=== PATIENT | male | born 1960 | race African-American/Black ===

== ENCOUNTER 2021-06-27 12:07 | Observation (INO) | payer OTHER ==
[2021-06-27 15:00] LABS: Basophils % 1.1 % (0-1.3); Hematocrit 44.4 % (39.6-49.0); Lymphocytes % 32.1 % (15.3-44.8); MPV 8.2 fL (7.6-11.3); RBC Red Blood Cell Count 5.02 M/uL (4.33-5.43)
[2021-06-27 15:03] LABS: Protime INR 1.02
[2021-06-27 15:18] LABS: ALT/SGPT 33 U/L (12-78); AST/SGOT 18 U/L (15-37); Albumin 4.9 g/dL (3.4-5.0); Alkaline Phosphatase 80 U/L (45-117); BUN Blood Urea Nitrogen 31 mg/dL (7-18); Bicarbonate 28 mmol/L (21-32); Bilirubin Direct 0.1 mg/dL (0-0.2); Bilirubin Total 0.4 mg/dL (0.2-1.0); Glucose Level 93 mg/dL (74-106); Magnesium 2.4 mg/dL (1.8-2.4); NT PRO-BNP 59 pg/mL (<125); Potassium 4.4 mmol/L (3.5-5.1); Protein, Total 9.4 g/dL (6.4-8.2); Sodium Level 137 mmol/L (136-145); Troponin (Emerg Dept Use Only) < 0.02 ng/mL (0.0-0.045)
--- NOTE | 2021-06-27 15:32 | RAD REPORT ---
EXAM DESCRIPTION: RAD - Chest Single View - 06/27/2021 3:07 pm CLINICAL HISTORY: SOB COMPARISON: None TECHNIQUE: AP portable chest image was obtained 06/27/2021 3:07 pm . FINDINGS: Lungs are clear. Heart and vasculature are normal. No measurable pleural effusion and no p neumothorax. No acute bony abnormality seen. No acute aortic findings suspected. IMPRESSION: No acute cardiopulmonary process.
[2021-06-27] MEDS ORDERED: NA CHLORIDE 0.9% 1,000 ML ONE (16:58)
--- NOTE | 2021-06-27 17:08 | EDPHYS ---
Physician Documentation [facility] Name: Abebe Montoya Age: 60 yrs Sex: Male : 1960 Arrival Date: 06/27/2021 Time: 12:10 Bed 16 Private MD: ED Physician Lavon Hayes HPI: 06/27 14:35 This 60 yrs old Black Male presents to ER via Ambulatory with complaints of Weakness, cp Shortness Of Breath. Historical: - Allergies: 12:21 No Known Allergies; ll1 - PMHx: 12:21 Diabetes mellitus; Hypertensive disorder; ll1 - PSHx: 12:22 knee SX; ll1 - Immunization history:: Client reports receiving the 2nd dose of the Covid vaccine, Flu vaccine is up to date. Client reports receiving the 2nd dose of the Covid vaccine, Date received: April 26, 2021 Moderna Client reports receiving the 1st dose of the Covid vaccine, March 29, 2021 Moderna. - Social history:: Smoking status: Patient denies any tobacco usage or history of. Exam: 15:11 ECG was reviewed by the Attending Physician. cp Vital Signs: 12:20 BP 122 / 90; Pulse 100; Resp 17; Temp 98.5; Pulse Ox 97% ; Weight 118.39 kg; Height 6 ll1 ft. 2 in. (187.96 cm); Pain 0/10; 12:20 Body Mass Index 33.51 (118.39 kg, 187.96 cm) ll1 MDM: 14:28 Patient medically screened. cp 17:17 Physician consultation: Jorge Hines MD was called at 17:18, was contacted at 17:18, cp regarding consult, patient's condition, and will see patient in inpatient room, tomorrow. 06/27 14:37 Order name: Basic Metabolic Panel cp 06/27 14:37 Order name: CBC with Diff cp 06/27 14:37 Order name: LFT's; Complete Time: 15:44 cp 06/27 15:44 Interpretation: Normal except: TP 9.4; GLOB 4.5. cp 06/27 14:37 Order name: Magnesium; Complete Time: 15:44 cp 06/27 14:37 Order name: NT PRO-BNP; Complete Time: 15:44 cp 06/27 14:37 Order name: PT-INR; Complete Time: 15:44 cp 06/27 14:37 Order name: Troponin (emerg Dept Use Only); Complete Time: 15:44 cp 06/27 14:37 Order name: Basic Metabolic Panel; Complete Time: 15:44 EDMS 06/27 15:45 Interpretation: Normal except: BUN 31; CRE 2.20; GFR 37; CA 10.2. cp 06/27 14:37 Order name: CBC with Automated Diff; Complete Time: 15:44 EDMS 06/27 16:37 Order name: SARS-COV-2 RT PCR; Complete Time: 17:10 EDMS 06/27 17:54 Order name: Lipid Profile EDMS 06/27 17:54 Order name: T4 Free EDMS 06/27 17:54 Order name: Troponin I EDVT 06/27 14:37 Order name: XRAY Chest (1 view); Complete Time: 15:44 cp 06/27 17:54 Order name: Hemoglobin A1c EDVT 06/27 17:54 Order name: Thyroid Stimulating Hormone EDVT 06/27 17:55 Order name: Urinalysis EDVT 06/27 17:55 Order name: Basic Metabolic Panel EDVT 06/27 17:55 Order name: Basic Metabolic Panel EDMS 06/27 17:55 Order name: CBC with Automated Diff EDMS 06/27 17:55 Order name: CBC with Automated Diff EDVT 06/27 18:06 Order name: Creatine Phosphokinase EDVT 06/27 20:13 Order name: US EDVT 06/27 23:46 Order name: Glucose, Ancillary Testing EDVT 06/28 05:09 Order name: Renal Panel EDVT 06/28 05:09 Order name: Magnesium EDVT 06/28 07:44 Order name: Glucose, Ancillary Testing EDVT 06/28 08:37 Order name: Osmolality, Urine EDMS 06/27 14:37 Order name: EKG; Complete Time: 14:37 cp 06/27 14:37 Order name: EKG - Nurse/Tech; Complete Time: 14:57 cp 06/27 14:37 Order name: IV Saline Lock; Complete Time: 14:57 cp 06/27 14:37 Order name: Labs collected and sent; Complete Time: 14:57 cp 06/27 14:37 Order name: O2 Per Protocol; Complete Time: 14:57 cp 06/27 14:37 Order name: O2 Sat Monitoring; Complete Time: 14:57 cp 06/27 17:54 Order name: 60g Consistent Carbohydrate (ADA ) EDMS EC:11 Rate is 75 beats/min. Rhythm is regular. TX interval is normal. QRS interval is normal. cp QT interval is normal. T waves are Inverted in lead aVR. Interpreted by me. Reviewed by me. Administered Medications: 16:47 Drug: NS 0.9% 1000 ml Route: IV; Rate: 1 bolus; Site: right antecubital; ld1 Disposition Summary: 06/27/21 17:07 Hospitalization Ordered Hospitalization Status: Observation cp Provider: Antonio Eugene cp Condition: Stable cp Problem: new cp Symptoms: are unchanged cp Bed/Room Type: Standard cp Location: Intensive Care Unit(06/28/21 06:49) cg Room Assignment: 6-(06/28/21 06:49) cg Diagnosis - Acute kidney failure, unspecified cp - SARS-associated coronavirus as the cause of diseases classified elsewhere cp Forms: - Medication Reconciliation Form cp - SBAR form cp Signatures: Dispatcher [employer] EDMS Angelita Cruz bd John Clements PA PA cp Dara Elizalde, RN RN cg Jorge Dickson RN RN ll1 Olesya Vivas RN RN ld1 Yoly Domingo RN RN kg Corrections: (The following items were deleted from the chart) 15:31 14:37 CORONAVIRUS+MR.LAB.BRZ ordered. EDMS EDMS 15:45 15:44 Normal except: BUN 31; CRE 2.20; GFR 37. cp cp 17:57 16:28 Rp Exam Complete+US.RAD.BRZ ordered. EDMS EDMS 18:04 17:07 Telemetry/MedSurg (observation) cp bd 18:04 17:07 cp bd 06/28 06:49 06/27 18:04 BR ER HOLD bd cg 06/28 06:49 06/27 18:04 ERHOLD- bd cg
--- NOTE | 2021-06-27 17:08 | ER ---
Nurse's Notes [facility] Name: Abebe Montoya Age: 60 yrs Sex: Male : 1960 Arrival Date: 06/27/2021 Time: 12:10 Bed 16 Private MD: Diagnosis: Acute kidney failure, unspecified;SARS-associated coronavirus as the cause of diseases classified elsewhere Presentation: 06/27 12:20 Chief complaint: Patient states: SOB and weakness for 2 days. No cough or fever. No ll1 pain. Coronavirus screen: Vaccine status: Patient reports receiving the 2nd dose of the covid vaccine. Client denies travel out of the [place] in the last 14 days. difficulty breathing, fatigue, shortness of breath, Client presents with at least one sign or symptom that may indicate coronavirus-19. Standard/surgical mask placed on the client. Ebola Screen: Patient denies travel to an Ebola-affected area in the 21 days before illness onset. No acute neurological deficit is noted. Initial Sepsis Screen: Does the patient meet any 2 criteria? HR > 90 bpm. No. Patient's initial sepsis screen is negative. Does the patient have a suspected source of infection? No. Patient's initial sepsis screen is negative. Risk Assessment: Do you want to hurt yourself or someone else? Patient reports no desire to harm self or others. Onset of symptoms was June 26, 2021. 12:20 Method Of Arrival: Ambulatory ll1 12:20 Acuity: MIRIAM 3 ll1 15:08 Coronavirus screen: Vaccine status: Patient reports receiving the 2nd dose of the covid kg vaccine. Date April 26, 2021 [facility] Patient reports receiving the 1st dose of the Covid vaccine. Date March 29, 2021 [facility]. Stroke Activation: Symptom onset > 6 hours Physician: Stroke Attending; Name: ; Notified At: ; Arrived At: Physician: Chief Stroke Resident; Name: ; Notified At: ; Arrived At: Physician: Stroke Resident; Name: ; Notified At: ; Arrived At: Physician: ED Attending; Name: ; Notified At: ; Arrived At: Physician: ED Resident; Name: ; Notified At: ; Arrived At: Historical: - Allergies: 12:21 No Known Allergies; ll1 - PMHx: 12:21 Diabetes mellitus; Hypertensive disorder; ll1 - PSHx: 12:22 knee SX; ll1 - Immunization history:: Client reports receiving the 2nd dose of the Covid vaccine, Flu vaccine is up to date. Client reports receiving the 2nd dose of the Covid vaccine, Date received: April 26, 2021 Moderna Client reports receiving the 1st dose of the Covid vaccine, March 29, 2021. - Social history:: Smoking status: Patient denies any tobacco usage or history of. Screenin:55 Abuse screen: Denies threats or abuse. Denies injuries from another. Nutritional kg screening: No deficits noted. Tuberculosis screening: No symptoms or risk factors identified. Fall Risk None identified. Assessment: 14:54 General: Appears in no apparent distress. Behavior is calm, cooperative, appropriate kg for age, quiet. Pain: Denies pain. Neuro: No deficits noted. Level of Consciousness is awake, alert, obeys commands, Oriented to person, place, time, situation, Appropriate for age [employer] are equal bilaterally Moves all extremities. Full function. Cardiovascular: No deficits noted. Heart tones S1 S2 Capillary refill < 3 seconds. Respiratory: Reports shortness of breath at rest cough that is non-productive, Breath sounds are clear bilaterally. GI: No deficits noted. : No deficits noted. EENT: No deficits noted. Derm: No deficits noted. Musculoskeletal: No deficits noted. Vital Signs: 12:20 BP 122 / 90; Pulse 100; Resp 17; Temp 98.5; Pulse Ox 97% ; Weight 118.39 kg; Height 6 ll1 ft. 2 in. (187.96 cm); Pain 0/10; 12:20 Body Mass Index 33.51 (118.39 kg, 187.96 cm) ll1 ED Course: 12:10 Patient arrived in ED. mr 12:21 Triage completed. ll1 12:22 Arm band placed on. ll1 14:28 John Clements PA is PHCP. cp 14:28 Lavon Hayes MD is Attending Physician. cp 14:54 Yoly Domingo, YONNY is Primary Nurse. kg 14:55 Patient has correct armband on for positive identification. kg 14:55 Inserted saline lock: 20 gauge in right antecubital area, using aseptic technique. kg 14:56 CBC with Automated Diff Sent. kg 14:56 Basic Metabolic Panel Sent. kg 14:57 Basic Metabolic Panel Sent. kg 14:57 CBC with Diff Sent. kg 14:57 LFT's Sent. kg 14:57 Magnesium Sent. kg 14:57 NT PRO-BNP Sent. kg 14:57 PT-INR Sent. kg 14:57 Troponin (emerg Dept Use Only) Sent. kg 15:07 XRAY Chest (1 view) In Process Unspecified. EDMS 17:06 Antonio Eugene is Hospitalizing Provider. cp 18:07 Primary Nurse role handed off by Yoly Domingo, YONNY oh 18:07 Joyce Lacy, RN is Primary Nurse. oh 19:10 Thyroid Stimulating Hormone Sent. oh 19:10 Hemoglobin A1c Sent. oh 19:11 Troponin I Sent. oh 19:11 T4 Free Sent. oh 19:11 Lipid Profile Sent. oh Administered Medications: 16:47 Drug: NS 0.9% 1000 ml Route: IV; Rate: 1 bolus; Site: right antecubital; ld1 Outcome: 17:07 Decision to Hospitalize by Provider. cp 06/28 10:26 Patient left the ED. iw Signatures: Dispatcher [employer] [facility] Monserrat Cao Irene RN RN John Clements PA PA cp Jorge Dickson RN RN ll1 Olesya Vivas RN RN ld1 Yoly Domingo, YONNY BLANCAS Joyce Lacy, RN RN oh Corrections: (The following items were deleted from the chart) 09 15:31 14:56 CORONAVIRUS+ drawn and sent. kg EDMS
[2021-06-27] MEDS ORDERED: HYDROCODONE/APAP 5/325 MG TAB PO PRN (17:52)
[2021-06-27] MEDS ORDERED: ACETAMINOPHEN 500 MG TAB PO PRN (17:52)
[2021-06-27] MEDS ORDERED: LABETALOL 20 MG/4ML SYRINGE IV PRN (17:52)
[2021-06-27] MEDS ORDERED: ONDANSETRON 4 MG/2 ML VIAL IV PRN (17:52)
--- NOTE | 2021-06-27 17:55 | P.HP ---
Certification for Inpatient Patient admitted to: Inpatient With expected LOS: >2 Midnights Patient will require the following post-hospital care: None Practitioner: I am a practitioner with admitting privileges, knowledge of patient current condition, hospital course, and medical plan of care. Services: Services provided to patient in accordance with Admission requirements found in Title 42 Section 412.3 of the Code of Federal Regulations Patient History Date of Service: 06/27/21 Reason for admission: SOB History of Present Illness: Patient is a 60-year-old male with a past medical history significant for diabetes and hypertension who presents with complaint of shortness of breath and dizziness onset yesterday. Patient reported that he is fully vaccinated. Patient reports associated signs and symptoms of weakness, fatigue and diaphoresis. Patient denies any other signs or symptoms. Symptoms are aggravated or relieved by nothing. Patient decided to present to the hospital for medical evaluation. Allergies No Known Allergies Allergy (Unverified 06/27/21 18:28) Home medications list reviewed: Yes - Past Medical/Surgical History Diabetic: Yes -: DM2 -: HTN Past Surgical History: Patient denies surgical history - Family History Mother -: Diabetes Father -: Cancer - Social History Smoking Status: Unknown if ever smoked Alcohol use: No CD- Drugs: No Caffeine use: No Place of Residence: Home Review of Systems General: Weakness Eyes: Unremarkable ENT: Unremarkable Respiratory: Shortness of Breath, SOB with Excertion Cardiovascular: Unremarkable Gastrointestinal: Unremarkable Genitourinary: Unremarkable Musculoskeletal: Unremarkable Integumentary: Unremarkable Neurological: Weakness Physical Examination - Physical Exam General: Alert, In no apparent distress, Oriented x3 HEENT: Atraumatic, PERRLA, Mucous membr. moist/pink, EOMI, Sclerae nonicteric Neck: Supple, 2+ carotid pulse no bruit, No LAD, Without JVD or thyroid abnormality Respiratory: Diminished Cardiovascular: Regular rate/rhythm, Normal S1 S2 Gastrointestinal: Normal bowel sounds, No tenderness Musculoskeletal: No tenderness Integumentary: No rashes Neurological: Normal gait, Normal speech, Normal tone, Normal affect Lymphatics: No axilla or inguinal lymphadenopathy External genitalia: Deferred Rectal: Deferred - Studies Laboratory Data (last 24 hrs) 06/27/21 14:50: PT 11.7, INR 1.02 06/27/21 14:50: WBC 9.30, Hgb 14.4, Hct 44.4, Plt Count 322 06/27/21 14:50: Sodium 137, Potassium 4.4, BUN 31 H, Creatinine 2.20 H, Glucose 93, Magnesium 2.4, Total Bilirubin 0.4, AST 18, ALT 33, Alkaline Phosphatase 80 Assessment and Plan - Plan --COVID-19 infection. Chest x-ray does not indicate any pneumonia. Patient placed on oral supplements. --DM2. BS monitoring with sliding scale insulin. --Hypertension. Continue home medication. --Acute kidney injury. Nephrology consulted. Will await further recommendations. --Dyslipidemia. Further management per patient's PCP outpatient. -- Shortness of breath. Chest x-ray negative for any pulmonary infiltrate. Patient reports resolution. Continue supportive care. -- DVT prophylaxis with heparin subQ. I have had discussion about advanced directives with the patient during this hospital admission. Addressed code status and /or goals of care. Spent more than 15 minutes. Case discussed withpatient and nurse. The following document was completed using voice recognition software. This can produce nail mill worker errors that can at times significantly distort words and phrases. Please interpret any aspect of the note that is nonsensical in light of this fact. Discharge Plan: Home Plan to discharge in: 48 Hours - Advance Directives Does patient have a Living Will: No Does patient have a Durable POA for Healthcare: No - Code Status/Comfort Care Code Status Assessed: Yes Code Status: Full Code Critical Care: No
--- NOTE | 2021-06-27 20:12 | RAD REPORT ---
EXAM DESCRIPTION: US - Renal Ultrasound-Complete - 06/27/2021 7:18 pm CLINICAL HISTORY: liss, assess for hydronephrosis, pyelonephritis COMPARISON: No comparisonsNone. FINDINGS: The right kidney measures 12.3 x 5.7 x 3.4 cm. The left kidney measures 11.3 x 7.9 x 3.8 cm. Renal cortical thickness and echogenicity are normal. No hydronephrosis or suspicious renal mass. A 2.7 centimeter anechoic lateral left mid renal cyst incidental finding. No bladder wall thickening or mass. No intraluminal stone or mass. IMPRESSION: No hydronephrosis or suspicious renal mass. No other significant findings.
[2021-06-27 20:17] LABS: HDL Cholesterol 44 mg/dL (40-60); LDL Cholesterol, Calculated 140 (<130); Troponin I < 0.02 ng/mL (0.0-0.045)
[2021-06-27] MEDS ORDERED: ALBUTEROL 2.5 MG/3 ML NEB SOL ONE (20:22)
[2021-06-27] MEDS ORDERED: IPRATROPIUM BROM 0.5MG/2.5ML ONE (20:22)
[2021-06-27] MEDS: INSULIN -REGULAR HUMAN 50 UNIT/0.5 ML ML SQ SCH (21:00)
[2021-06-27] MEDS: FAMOTIDINE 20 MG TAB PO SCH (21:00)
[2021-06-28] MEDS ORDERED: FAMOTIDINE 20 MG TAB ONE ×2 (00:11→09:39)
[2021-06-28 02:32] VITALS: TEMP 98.4
[2021-06-28] MEDS: HEPARIN 5000 UNIT/ML 1 ML VIAL SQ SCH ×2 (03:05→09:00)
[2021-06-28] MEDS ORDERED: HEPARIN 5000 UNIT/ML 1 ML VIAL ONE ×2 (03:23→09:39)
[2021-06-28 04:57] LABS: Basophils % 0.9 % (0-1.3); Hematocrit 40.1 % (39.6-49.0); Lymphocytes % 42.1 % (15.3-44.8); MPV 8.1 fL (7.6-11.3); RBC Red Blood Cell Count 4.53 M/uL (4.33-5.43)
[2021-06-28 05:05] LABS: Potassium 3.9 mmol/L (3.5-5.1)
[2021-06-28] MEDS: INSULIN -REGULAR HUMAN 50 UNIT/0.5 ML ML SQ SCH (07:30)
[2021-06-28 07:39] VITALS: BMI 33.3
[2021-06-28] MEDS ORDERED: D50W 25 GM/50 ML SYRINGE IV PRN (07:42)
[2021-06-28] MEDS ORDERED: GLUCAGON 1 MG/VIAL IM PRN (07:42)
[2021-06-28 08:01] LABS: Urine Appearance CLEAR (Clear); Urine Bilirubin NEGATIVE (Negative); Urine Blood NEGATIVE (Negative); Urine Color YELLOW (Yellow); Urine Glucose 3+ (Negative); Urine Protein NEGATIVE (Negative); Urine Specific Gravity >=1.030 (1.005-1.030); Urine Urobilinogen 0.2 mg/dL (0.2-1.0)
[2021-06-28 08:04] VITALS: O2SAT 98
[2021-06-28 08:04] LABS: Urine Microscopic Reflex NO UMIC
[2021-06-28] MEDS: FAMOTIDINE 20 MG TAB PO SCH (09:00)
[2021-06-28] MEDS ORDERED: THIAMINE HCL 100 MG TABLET PO SCH (09:00)
[2021-06-28] MEDS ORDERED: VITAMIN D 5,000 UNIT CAP PO SCH (09:00)
[2021-06-28] MEDS ORDERED: ASPIRIN 81 MG CHEWABLE TABLET PO SCH (09:00)
[2021-06-28] MEDS ORDERED: ASCORBIC ACID 500 MG TABLET PO SCH (09:00)
[2021-06-28] MEDS ORDERED: ZINC SULFATE 220 MG CAP PO SCH (09:00)
--- NOTE | 2021-06-28 09:18 | P.DS ---
Admission Date: 06/27/21 Discharge Date: 06/28/21 Disposition: ROUTINE DISCHARGE Discharge Condition: FAIR Reason for Admission: SOB - Problems (1) Acute renal failure Status: Acute (2) COVID-19 virus infection Status: Acute (3) DM type 2 (diabetes mellitus, type 2) Status: Acute (4) Essential hypertension Status: Acute (5) Hyperlipidemia Status: Acute Brief History of Present Illness: 60-year-old male with a past medical history significant for diabetes and hypertension presented with a complaint of shortness of breath and dizziness. He tested positive for COVID 19 in the ED. Patient reported that he is fully vaccinated. Other symptoms symptoms reported include weakness, fatigue and diaphoresis. Blood work showed elevated creatinine indicating acute renal failure. Chest x-ray showed no acute disease. Patient hospitalized for further management. Hospital Course: Patient placed under observation. Troponin trended negative. Renal function also improved with monitoring. Patient was asymptomatic during the hospital stay. Vitals were stable. Patient's fatigue and shortness of breath likely secondary to COVID 19 infection. Patient deemed clinically stable for discharge. Vital Signs/Physical Exam: Temp Pulse Resp BP Pulse Ox 98.4 F 69 17 132/77 98 06/28/21 00:00 06/28/21 00:00 06/28/21 00:00 06/28/21 00:00 06/28/21 00:00 General: Alert, In no apparent distress, Oriented x3 HEENT: Mucous membr. moist/pink Neck: JVD not distended Respiratory: Clear to auscultation bilaterally, Normal air movement Cardiovascular: No edema, Regular rate/rhythm, Normal S1 S2, No murmurs Gastrointestinal: Soft and benign, Non-distended, No tenderness Musculoskeletal: No swelling, No tenderness Integumentary: No rashes, No erythema Neurological: Normal strength at 5/5 x4 extr Laboratory Data at Discharge: WBC 7.00 K/uL (4.3-10.9) D 06/28/21 04:39 Hgb 13.1 g/dL (13.6-17.9) L 06/28/21 04:39 Hct 40.1 % (39.6-49.0) 06/28/21 04:39 Plt Count 297 K/uL (152-406) 06/28/21 04:39 PT 11.7 SECONDS (9.5-12.5) 06/27/21 14:50 INR 1.02 06/27/21 14:50 Sodium 138 mmol/L (136-145) 06/28/21 04:39 Potassium 3.9 mmol/L (3.5-5.1) 06/28/21 04:39 BUN 28 mg/dL (7-18) H 06/28/21 04:39 Creatinine 1.22 mg/dL (0.55-1.3) 06/28/21 04:39 Glucose 83 mg/dL (74-106) 06/28/21 04:39 Phosphorus 4.0 mg/dL (2.5-4.9) 06/28/21 04:39 Magnesium 2.0 mg/dL (1.8-2.4) 06/28/21 04:39 Total Bilirubin 0.4 mg/dL (0.2-1.0) 06/27/21 14:50 AST 18 U/L (15-37) 06/27/21 14:50 ALT 33 U/L (12-78) 06/27/21 14:50 Alkaline Phosphatase 80 U/L (45-117) 06/27/21 14:50 Troponin I < 0.02 ng/mL (0.0-0.045) 06/27/21 18:39 Triglycerides 101 mg/dL (<150) 06/27/21 18:39 Cholesterol 204 mg/dL (<200) H 06/27/21 18:39 HDL Cholesterol 44 mg/dL (40-60) 06/27/21 18:39 Cholesterol/HDL Ratio 4.64 06/27/21 18:39 Home Medications: Ascorbic Acid [Vitamin C*] 1,000 mg PO DAILY #30 tablet 06/28/21 Atorvastatin Calcium [Lipitor] 40 mg PO BEDTIME #30 tab 06/28/21 Cholecalciferol (Vitamin D3) [Vitamin D3] 2,000 unit PO DAILY #30 capsule 06/28/21 Metformin HCl [Glucophage*] 500 mg PO BIDWM #60 tab 06/28/21 Zinc Sulfate [Zinc Sulfate*] 220 mg PO DAILY #30 cap 06/28/21 New Medications: Metformin HCl [Glucophage*] 500 mg PO BIDWM #60 tab Atorvastatin Calcium [Lipitor] 40 mg PO BEDTIME #30 tab Ascorbic Acid [Vitamin C*] 1,000 mg PO DAILY #30 tablet Cholecalciferol (Vitamin D3) [Vitamin D3] 2,000 unit PO DAILY #30 capsule Zinc Sulfate [Zinc Sulfate*] 220 mg PO DAILY #30 cap Physician Discharge Instructions: You have diabetes mellitus. You need to eat diabetic diet. Your cholesterol level is high. You need to eat avoid fatty food, eat less beef and seafood-Shrimp, oysters, etc. Fish is ok. Please stay hydrated, drink at least 4 8 oz water daily. Diet: ADA Activity: Ad stephen Followup: ZACK DIXON [Primary Care Provider] - 1-2 Weeks
[2021-06-28] MEDS ORDERED: ASCORBIC ACID 500 MG TABLET ONE (09:38)
[2021-06-28] MEDS ORDERED: ASPIRIN 81 MG CHEWABLE TABLET ONE (09:39)
[2021-06-28] MEDS ORDERED: THIAMINE HCL 100 MG TABLET ONE (09:39)
[2021-06-28] MEDS ORDERED: ZINC SULFATE 220 MG CAP ONE (09:39)
[2021-06-28 09:49] VITALS: BP 145/79
--- NOTE | 2021-06-28 12:43 | EKG ---
Test Date: 2021-06-27 Test Time: 15:06:34 Fnp: HENRI MEASUREMENT RESULTS: Intervals: Rate: 75 OR: 180 QRSD: 78 QT: 356 QTc: 397 [place]: P: 43 OR: 180 QRS: 32 T: 41 INTERPRETIVE STATEMENTS: Normal sinus rhythm Normal ECG No previous ECG available for comparison Electronically Signed On 06-28-21 12:41:33 CDT by Berto Borges
[2021-06-29 01:11] LABS: UR PROTEIN 13.9 mg/dL (<11.9); Urine Protein/Creatinine Ratio 0.1 ratio (<0.15)
== END 2021-06-28 10:26 | disposition home or self-care (01) ==
LOC: ER 12:07 → ERHOLD 17:45
PROVIDERS: ADMIT Internal Medicine; ATTEND Internal Medicine
DX: U07.1 COVID-19 (principal); N17.9 Acute kidney failure, unspecified; E11.9 Type 2 diabetes mellitus without complications; I10 Essential (primary) hypertension; E78.5 Hyperlipidemia, unspecified; E78.00 Pure hypercholesterolemia, unspecified; Z83.3 Family history of diabetes mellitus; Z80.9 Family history of malignant neoplasm, unspecified
CPT/HCPCS: 93005; 85025 ×2; 80048; 36415; 83735 ×2; 84132; 85610; 84300; 80061; 82947 ×2; 80076; 80069; 84443; 81003; 83036; 82570; 84484 ×2; 84439; 83880; 83935; 84156; 71045; 76770; U0003; J1644 ×2; J7030; 99284; G0378